=== PATIENT | male | born 1965 | race Caucasian/White ===

== ENCOUNTER 2022-10-21 08:00 | Outpatient (CLI) | payer OTHER ==
[~2022-10-21] VITALS: Ht 177.8 cm; Wt 83.9 kg
[2022-10-23] MEDS ORDERED: CEFAZOLIN SOD 2 GM in D5W 50 ML IV ONE (07:00)
== END 2022-10-21 16:00 | disposition home or self-care (01) ==
LOC: SLB 08:00 → EDSTATUS 10-23 07:30
PROVIDERS: ATTEND Surgery
DX: Z01.818 Encounter for other preprocedural examination (principal); K80.80 Other cholelithiasis without obstruction; Z20.822 Contact with and (suspected) exposure to COVID-19
CPT/HCPCS: 36415; U0003; J0690; J7060